=== PATIENT | female | born 1950 ===

== ENCOUNTER 2016-10-03 15:52 | Emergency (ER) | payer MEDICARE ==
[~2016-10-03] VITALS: Ht 160 cm; Wt 62.0 kg
[~2016-10-03 15:52] MED LIST: ARMO60TA PO
[2016-10-03 15:54] VITALS: BP 151/71; PULSE 66; RESP 20; TEMP 97.8; O2SAT 96
--- NOTE | 2016-10-03 16:09 | PD ---
HPI Chief Complaint: Injury Time Seen by Provider: 16:07 Travel History International Travel<30 days: No Contact w/Intl Traveler<30days: No Traveled to known affect area: No History of Present Illness HPI 66-year-old female presents to the emergency department for evaluation of right shoulder pain that started approximately one week ago. She denies a specific injury, but is concerned it may be dislocated. She states that she does pop her shoulders from time to time. The patient states that she is unable to move the shoulder due to the pain. She denies any fevers or chills. She denies any history of shoulder issues. The patient states she has been taking ibuprofen at home for pain with some improvement. She denies any other injury or complaint at this time. PFSH Past Medical History Cancer: Yes (CERVICAL) Cardiovascular Problems: Yes (IRREG. RHYTHYM) Diabetes: No Endocrine: Yes (HYPOGLYCEMIC) Genitourinary: No Hepatitis: No Hiatal Hernia: No Immune Disorder: No Musculoskeletal: No Neurologic: No Psychiatric: No Reproductive: No Respiratory: Yes (SLIGHT ASTHMA-TREATED ONCE) Thyroid Disease: Yes ?: Not Past Surgical History Abdominal Surgery: Yes (ABDOMINOPLASTY) AICD: No Cardiac Surgery: No Ear Surgery: No Endocrine Surgery: No Eye Surgery: No Genitourinary Surgery: No Gynecologic Surgery: Yes (C SECTION, HYSTERECTOMY) Joint Replacement: No Oral Surgery: No Pacemaker: No Thoracic Surgery: No Social History Alcohol Use: No Tobacco Use: No Substance Use: No Allergies-Medications (Allergen,Severity, Reaction): Coded Allergies: Latex (Verified Allergy, Severe, RASH, 10/03/16) Reported Meds & Prescriptions Reported Meds & Active Scripts Active Lortab (Hydrocodone-Acetaminophen) 5-325 Mg Tab 1 Tab PO Q6H PRN Reported Metoprolol Tartrate 25 Mg Tab 25 Mg PO BID Thyroid 60 Mg Tab 60 Mg PO DAILY Review of Systems Except as stated in HPI: all other systems reviewed are Neg Physical Exam Narrative GENERAL: Well-developed well-nourished female patient, ambulatory. Afebrile. SKIN: Warm and dry. No erythema or warmth over right shoulder. HEAD: Normocephalic. Atraumatic. EYES: No scleral icterus. No injection or drainage. NECK: Supple, trachea midline. No JVD or lymphadenopathy. CARDIOVASCULAR: Regular rate and rhythm without murmurs, gallops, or rubs. Right radial pulse 2+. RESPIRATORY: Breath sounds equal bilaterally. No accessory muscle use. Lungs sounds are clear to auscultation. GASTROINTESTINAL: Abdomen soft, non-tender, nondistended. MUSCULOSKELETAL: No cyanosis, or edema. Patient has tenderness over right upper shoulder. She has very limited range of motion of the right shoulder due to pain. She has a normal grasp strength in the right hand. She has tenderness over humeral head, no clavicle tenderness. BACK: Nontender without obvious deformity. No CVA tenderness. Data Data Last Documented VS Vital Signs Date Time Temp Pulse Resp B/P Pulse Ox O2 Delivery O2 Flow Rate FiO2 10/03/16 15:54 97.8 66 20 151/71 96 Room Air Orders Shoulder, Complete (>2vws) (10/03/16 ) Acetamin-Hydrocod 325-5 Mg ([place] 5-325 (10/03/16 16:15) MDM Medical Decision Making Medical Screen Exam Complete: Yes Emergency Medical Condition: Yes Medical Record Reviewed: Yes Interpretation(s) Last Impressions Shoulder X-Ray 10/03/16 0000 Signed Impressions: Service Date/Time: Monday, October 03, 2016 16:34 - CONCLUSION: Hydroxyapatite deposition.. Saskia Montiel MD Differential Diagnosis Dislocation versus fracture versus sprain Narrative Course 66-year-old female presents to the emergency department for evaluation of right shoulder pain for 1 week. X-ray of the right shoulder is ordered and pending. X-ray of the right shoulder hydroxyapatite deposition but no acute fracture or dislocation. Patient is instructed to follow up with an orthopedist. She will be given the name and number of the orthopedist aviation electronics technician today. She is instructed to take ibuprofen [id number] as needed for pain. She'll also be given a short-term prescription for Lortab. She is instructed ice. The patient is agreeable to this plan. Diagnosis Primary Impression: Right shoulder pain Qualified Code: M25.511 - Acute pain of right shoulder Referrals: Joseph Armenta MD call for appointment Patient Instructions: General Instructions, Shoulder Pain (ED) Additional Instructions: Continue ibuprofen as directed as needed for pain. Take Lortab as instructed as needed for moderate to severe pain. Caution this can make you drowsy so do not drive after taking. Ice for 20 minutes 4-5 times daily. Follow-up with an orthopedist. Return to the emergency department for any acute worsening of symptoms. Med/Other Pt SpecificInfo: Prescription(s) given Scripts Hydrocodone-Acetaminophen (Lortab)5-325 Mg Tab1 Tab PO Q6H PRN (PAIN) #16 TAB Ref 0 Prov:Abbi Camp MD 10/03/16 Disposition: 01 DISCHARGE HOME Condition: Stable Dina Rosado Oct 03, 2016 16:09
[2016-10-03] MEDS ORDERED: ACETAMINOPHEN/HYDROcodone 325 MG/5 MG TAB PO ONE (16:15)
[2016-10-03] MEDS ORDERED: METO25TA3 PO (16:43)
--- NOTE | 2016-10-03 16:46 | RADRPT ---
EXAM DATE/TIME: 10/03/2016 16:34 [facility] COMPARISON: No previous studies available for comparison. INDICATIONS : Patient has had pain in right shoulder. No known injury. MEDICAL HISTORY : None. SURGICAL HISTORY : None. ENCOUNTER: Initial ACUITY: 3 days PAIN SCORE: 9/10 LOCATION: Right Shoulder FINDINGS: Multiple view examination of the right shoulder demonstrates no evidence of fracture or dislocation. There are calcifications identified within the region of the rotator cuff tendons consistent with hy droxyapatite deposition. The glenohumeral and acromioclavicular joints are maintained. There is norm al range of motion between internal and external rotation. Bony mineralization is normal. CONCLUSION: Hydroxyapatite deposition.. Saskia Montiel MD on October 03, 2016 at 16:42 Board Certified Radiologist. This report was verified electronically.
[2016-10-03] MEDS ORDERED: HYDR-3533 PO (16:57)
== END 2016-10-03 17:40 | disposition home or self-care (01) ==
LOC: NEPB 15:52
DX: M25.511 Pain in right shoulder (principal)
CPT/HCPCS: 73030; 99283